=== PATIENT | male | born 1945 | race Caucasian/White ===

== ENCOUNTER 2024-12-11 08:43 | Emergency (ER) | payer OTHER ==
[~2024-12-11] VITALS: Ht 182.9 cm; Wt 72.2 kg
[2024-12-11 09:59] VITALS: BP 133/68
== END 2024-12-11 10:00 | disposition home or self-care (01) ==
LOC: ED 08:43
DX: S90.122A Contusion of left lesser toe(s) without damage to nail, initial encounter (principal); S90.812A Abrasion, left foot, initial encounter; E78.00 Pure hypercholesterolemia, unspecified; W18.30XA Fall on same level, unspecified, initial encounter
CPT/HCPCS: 73630; 99283